=== PATIENT | male | born 1970 | race Caucasian/White ===

== ENCOUNTER 2020-10-25 23:06 | Emergency (ER) | payer BC ==
[2020-10-25 23:41] LABS: #Basophils 0.1 thou/uL (0.0-0.2); #Eosinphils 0.4 thou/uL (0.0-0.7); #Lymphocytes 2.6 thou/uL (1.20-3.40); #Monocytes 0.5 thou/uL (0.11-0.59); #Neutrophils 5.3 thou/uL (1.40-6.50); %Lymphocytes 28.8 % (21.0-51.0); %Monocytes 5.9 % (0.0-10.0); %Neutrophils 59.3 % (42.0-75.0); Hemoglobin 15.5 g/dL (14.0-18.0); Mean Corpuscular HGB CONC 33.6 g/dL (32.0-36.0); Mean Corpuscular Hemoglobin 30.5 pg (27.0-31.0); Mean Corpuscular Volume 90.7 fL (78.0-98.0); Mean Platelet Volume 9.6 fL (7.4-10.4); Platelet Count 199 thou/uL (130-400); White Blood Cell (WBC) Count 8.9 thou/uL (4.8-10.8)
[2020-10-25] MEDS ORDERED: Ondansetron PF 4 MG/2 ML Vial ONE (23:57)
[2020-10-25] MEDS ORDERED: Ketorolac Tromethamine 30 MG/ML VIAL ONE (23:57)
[2020-10-25 23:59] LABS: ALT (SGPT) 24 U/L (8-55); AST (SGOT) 27 U/L (5-34); Acetaminophen Less than 6.0 mcg/mL (10.0-30.0); Albumin 3.9 g/dL (3.5-5.0); Alcohol Less than 10 mg/dL (Less than 10); Alkaline Phosphatase 79 U/L (40-110); Anion Gap 15 mmol/L (10-20); BUN (Urea Nitrogen) 14 mg/dL (8.9-20.6); Bilirubin, Total 0.4 mg/dL (0.2-1.2); Calc. Creatinine Clearance 0 mL/min (70-130); Calcium 8.6 mg/dL (7.8-10.44); Carbon Dioxide 21 mmol/L (22-29); Chloride 108 mmol/L (98-107); Globulin 2.6 g/dL (2.4-3.5); Glucose 105 mg/dL (70-105); Potassium 3.9 mmol/L (3.5-5.1); Protein, Total 6.5 g/dL (6.0-8.3); Salicylate Less than 8.0 mg/dL (15.0-30.0); Sodium 140 mmol/L (136-145)
[2020-10-26] MEDS ORDERED: HYDROcodone/Acetaminophen 10/325 mg Tablet ONE (00:17)
--- NOTE | 2020-10-26 08:39 | RAD ---
PORTABLE CHEST: DATE: 10/25/2020. FINDINGS: An AP portable film at 2343 shows a normal-sized heart and clear lungs. No acute infiltrate or effus ion was seen. At most, there may be a slight prominence to some of the left basilar markings, but no t enough for me to confidently call any infiltrate. IMPRESSION: No definite acute findings. POS: HOME
== END 2020-10-26 00:24 | disposition home or self-care (01) ==
LOC: BURERS 23:06
DX: S29.011A Strain of muscle and tendon of front wall of thorax, initial encounter (principal); J44.9 Chronic obstructive pulmonary disease, unspecified; F17.210 Nicotine dependence, cigarettes, uncomplicated
CPT/HCPCS: 36415; 71045; 80053; 80307; 83880; 84484; 85025; 93005; 96374; 96375; J1885; J2405